=== PATIENT | male | born 1980 | race Hispanic/Latino ===

== ENCOUNTER → 2022-04-26 09:01 | Outpatient (CLI) | payer BC, SELFPAY ==
--- NOTE | ~2022-04-26 | US_ITS ---
EXAMINATION: US abdomen limited DATE: 04/26/2022 09:32 INDICATION: Abnormal liver function tests. TECHNIQUE: Multiple grayscale and Doppler ultrasound images of the abdomen were obtained. COMPARISON: None FINDINGS: The visualized portions of the head and body of the pancreas are normal. There is diffuse h epatic steatosis. No liver surface nodularity. There is normal flow in main portal vein. The gallblad melquiades is normal in size. No gallstones or gallbladder wall thickening. There was no sonographic Marlow sign. The common duct is normal and measures 4 mm. IMPRESSION: 1. Diffuse hepatic steatosis. Reviewed, dictated and finalized at location A. [employer]
== END ==
PROVIDERS: PCP Emergency Medicine; Visit Provider Emergency Medicine
DX: R74.8 Abnormal levels of other serum enzymes (principal)
CPT/HCPCS: 76705

== ENCOUNTER → 2023-01-31 10:16 | Outpatient (CLI) | payer BC, SELFPAY ==
--- NOTE | ~2023-01-31 | XR_ITS ---
XR hand LT 2V DATE: 01/31/2023 10:31 INDICATION: Polyarthralgia both hands. No injury. TECHNIQUE: AP and lateral views COMPARISON: None FINDINGS: No fracture or dislocation, periosteal reaction or bone destruction, erosive change or savannah drocalcinosis. Joint spaces are well preserved. IMPRESSION: Negative Reviewed, dictated and finalized at location B. IMPRESSION: Negative
--- NOTE | ~2023-01-31 | XR_ITS ---
Right Hand Technique: PA and lateral views were obtained. Clinical History: Polyarthralgia Findings: No acute fracture or dislocation is seen. Osseous alignment is anatomic. Joint spaces are p reserved. Soft tissues are unremarkable. Impression: Unremarkable right hand. Reviewed, dictated and finalized at location M. Impression: Unremarkable right hand.
== END ==
DX: M25.50 Pain in unspecified joint (principal); R76.8 Other specified abnormal immunological findings in serum; R70.0 Elevated erythrocyte sedimentation rate
CPT/HCPCS: 73120